=== PATIENT | female | born 1985 | race Asian ===

== ENCOUNTER 2021-08-21 06:41 | Inpatient (IN) | payer MEDICAID ==
[~2021-08-21] VITALS: Ht 157.5 cm; Wt 71.2 kg
[2021-08-21 08:19] LABS: BASOPHILS # (AUTO) 0.1 X10'3 (0-0.2); BASOPHILS % (AUTO) 0.4 % (0-1); EOSINOPHILS % (AUTO) 0.3 % (0-6); HEMATOCRIT 40.6 % (35.0-45.0); HEMOGLOBIN 13.2 g/dl (12.0-16.0); LYMPHOCYTES # (AUTO) 1.6 X10'3 (1.1-4.8); MEAN CORPUSCULAR HEMOGLOBIN 27.1 PG (27.0-31.0); MEAN CORPUSCULAR HGB CONC 32.5 g/dL (33.0-36.5); MEAN CORPUSCULAR VOLUME 83.5 FL (78-98); MEAN PLATELET VOLUME 8.2 FL (7.4-10.4); MONOCYTES # (AUTO) 0.7 X10'3 (0-0.9); MONOCYTES % (AUTO) 5.6 % (2-12); NEUTROPHILS # (AUTO) 9.9 X10'3 (1.8-7.7); NEUTROPHILS % (AUTO) 80.7 % (42-75); PLATELET COUNT 308 X10'3 (140-440); RED BLOOD COUNT 4.86 X10'6 (4.20-5.60); RED CELL DISTRIBUTION WIDTH 14.7 % (11.5-14.5); WHITE BLOOD COUNT 12.3 X10'3 (4.5-11.0)
[2021-08-21 08:22] LABS: URINE HCG NEGATIVE (NEG)
[2021-08-21 08:25] LABS: URINE AMPHETAMINE SCREEN NEGATIVE (Neg); URINE BARBITUATE SCREEN NEGATIVE (Neg); URINE BENZODIAZEPINES SCREEN NEGATIVE (Neg); URINE CANNABINOID SCREEN NEGATIVE (Neg); URINE COCAINE SCREEN NEGATIVE (Neg); URINE METHADONE SCREEN NEGATIVE (Neg); URINE OPIATE SCREEN NEGATIVE (Neg); URINE PHENCYCLIDINE SCREEN NEGATIVE (Neg)
[2021-08-21 08:31] LABS: ALANINE AMINOTRANSFERASE 30 U/L (12-78); ALBUMIN 4.2 G/DL (3.4-5.0); ALKALINE PHOSPHATASE 80 IU/L (46-116); ANION GAP 10 (8-16); ASPARTATE AMINO TRANSFERASE 20 U/L (10-37); BILIRUBIN,TOTAL 0.5 MG/DL (0.1-1.0); BLOOD UREA NITROGEN 4 MG/DL (7-18); BUN/CREATININE RATIO 4.3 (6.6-38.0); CALCIUM 9.1 MG/DL (8.5-10.1); CHLORIDE 103 MMOL/L (99-107); CREATININE 0.92 MG/DL (0.40-0.90); ETHANOL < 0.010 GM/DL (0.0-0.010); GLUCOSE 103 MG/DL (70-104); POTASSIUM 3.2 MMOL/L (3.5-5.1); SODIUM 141 MMOL/L (135-145); TOTAL CARBON DIOXIDE 27.7 MMOL/L (24-32); TOTAL PROTEIN 8.4 G/DL (6.4-8.2); eGFR 69 ML/MIN
[2021-08-21] MEDS ORDERED: potassium Cl 20 mEq SR tablet PO STA (09:31)
[2021-08-21] MEDS ORDERED: NO HOME MEDS (10:20)
--- NOTE | 2021-08-21 12:11 | NUR ---
Pt observerd sleeping
--- NOTE | 2021-08-21 14:32 | NUR ---
Pt seated up in bed eating lunch
--- NOTE | 2021-08-21 16:30 | NUR ---
Pt observed sleeping
--- NOTE | 2021-08-21 19:52 | NUR ---
The patient has been resting on her bed sleeping. She has declined dinner and then went right back to sleep. She did awaken for the evening assessment and was pleasant and polite. She did give vague replies. She stated that she has been feeling sad because she has been going through a breakup. She stated that she has been in [place] for several weeks visiting but plans to return to [place]. She reports last drug use was 3-4 weeks ago. She denies A/V hallucinations. 5150 hold was explained to her.
--- NOTE | 2021-08-21 20:45 | NUR ---
The patient and appears to be sleeping
--- NOTE | 2021-08-21 21:47 | NUR ---
The patient appears to be sleeping
--- NOTE | 2021-08-21 22:19 | NUR ---
The patient is awake and requesting Nyquil to sleep. MD made aware patient was requesting sleep medication. He reports he will come and talk with the patient
--- NOTE | 2021-08-21 22:31 | NUR ---
The patient has been accepted at [facility]. Will hold off on medicating for sleep until admitted upstairs.
--- NOTE | 2021-08-21 22:31 | NUR ---
Client to be admitted to [facility] for Depression/GD per Dr Ras Castillo.
[2021-08-21] MEDS ORDERED: magnesium hydroxide 30ml (MOM) UD suspension PO PRN (23:55)
[2021-08-21] MEDS ORDERED: mag hydrox/Alum hydrox/simeth 30ml oral suspension PO PRN (23:55)
[2021-08-21] MEDS ORDERED: loperamide 2mg capsule PO PRN (23:55)
[2021-08-21] MEDS ORDERED: acetaminophen 325mg tablet PO PRN ×2 (23:55)
[2021-08-22 00:27] VITALS: BP 139/91
[2021-08-22] MEDS ORDERED: hydrOXYzine 25 MG tablet PO PRN (00:40)
[2021-08-22] MEDS: NICOTINE POLACRILEX 2 MG LOZENGE BC PRN ×4 (00:47→17:51)
[2021-08-22] MEDS ORDERED: pneumococcal 23-VAL P-sac vacc 25 mcg/0.5ml vial IMVAC ONE (02:30)
--- NOTE | 2021-08-22 03:44 | NUR ---
NURSING ADMISSION NOTE Pt arrived on [facility] at 23:49 on 08/21/21. Pt offered a shower, but she declined. 2 RN skin check completed. 5150 advisement done, pt verbalized understanding. 5150 reads: Leonard reports inability to sleep or eat for the last week. Unable to define means of obtaining food or [facility]. Leonard presents as confused unable to establish viable safety plan. Pt states that she has been feeling depressed for awhile, denies SI saying, I dont want to and Im not suicidal, but I feel like if you keep being depressed for a long time it could lead to that, and I dont want that. It is hard to decipher if pt is being very vague or is a poor historian when answering questions about past medical history/ life events. She has a flat affect, and takes a few seconds to answer at times. When asked about past MH diagnosis, she replies, depression I think but I really cant remember it was years ago She reports having 3 prior inpatient hospitalizations, the last being about 3 years ago. Pt states she is just visiting family here in [place] but lives in [place]. She declines to sign any paperwork after staring at it for a few minutes saying, Can we please just do it tomorrow? PMH: hypertension, substance abuse, she reports getting opiates off the street like suboxone and pain pills illegally, and takes them periodically. She states she last had opiates 3 weeks ago. ER tox screen was negative. Chart reports hx of schizoaffective d/o. Pt denies SI/HI/AH/VH
[2021-08-22 07:54] LABS: HEMOGLOBIN A1C 5.1 % (4.5-6.2)
[2021-08-22 08:00] VITALS: BP 118/74
[2021-08-22] MEDS: nicotine 21mg patch - 24 hr TD SCH (08:08)
[2021-08-22 08:20] LABS: CHOL/HDL RATIO 2.1 (0.00-4.99); CHOLESTEROL 142 MG/DL (0-200); HDL CHOLESTEROL 67 MG/DL (35-60); LDL CHOLESTEROL 55 MG/DL (50-100); TRIGLYCERIDES 110 MG/DL (20-135)
--- NOTE | 2021-08-22 10:42 | NUR ---
Malnutrition consult: Per malnutrition risk screen with RN pt unsure of wt loss though also reports 2-13 lb wt loss with decreased appetite. Per program/music director pt reports inability to sleep or eat for the last week though RN also documents pt as confused versus vague versus a poor historian. No scaled wt hx in EMR. Patient's first scaled weight is 63.64 kg followed by 71.2 kg just two hours later. With either weight patient is not considered underweight. Pt on a regular diet and eating well, documented with 100% PO intake first meal. Pt with no documented decrease in muscle strength or edema. Pt currently lacks a minimum of two criteria for malnutrition. Will continue to follow. Addendum: 08/22/21 at [address] Amended: Links added.
--- NOTE | 2021-08-22 17:57 | NUR ---
Nursing Progress Note: Leonard Legal hold: 5150 Client on involuntary status for GD Report received from Hattie Guillen RN with use of SBAR Why are they here: Pt arrived on [facility] at 23:49 on 08/21/21. 5150 reads: Leonard reports inability to sleep or eat for the last week. Unable to define means of obtaining food or skilled nursing. Leonard presents as confused unable to establish viable safety plan. Pt states that she has been feeling depressed for a while, denies SI saying, I dont want to and Im not suicidal, but I feel like if you keep being depressed for a long time it could lead to that, and I dont want that. When asked about past MH diagnosis, she replies, depression I think but I really cant remember it was years ago She reports having 3 prior inpatient hospitalizations, the last being about 3 years ago. Pt states she is just visiting family here in [place] but lives in [place]. Assessment What has happened this shift: Patient received sleeping in her room at change of shift. She slept most of the morning and declined to participate for breakfast in the group room. Patient awoke around snack time at 1100 and was noted walking quietly around the unit. She was receptive to 1:1 assessment. Patient reported feelings of depression and extreme stress. She took a shower on this shift, dressed in clean clothing. She reports occasionally having thoughts of hurting herself but does not actually want to do anything like that. She denies SI and HI. Patient endorsed that she wants to get back on Celexa or another medication to make her feel better. She is noted to be polite, pleasant, and cooperative with care. She reports hearing voices of people talking to her when she is really tired. However, denies AH or VH on this shift. Patient endorsed that she is feeling well-rested now. She was observed napping on and off in her room throughout the shift. Patient awoke and was noted walking around the unit later in the shift, appearing bored. She joined for meals and snack time in the group room with peers. S/I, H/I: Denies A/VH: Denies. Does not appear to be responding to IS. Sleep: Pt slept 4 hours last night per NOC shift. Napped on and off throughout this shift. ADL's: Independent Group attendance: No Were meds taken: Scheduled Nicotine patch Any med S/E: None observed or reported Mental Status Exam Appearance: Younger appearing female with long black hair, wearing green unit scrubs. Eye contact: Good Behavior: Cooperative, polite, pleasant Speech: Clear, WNL Mood: Depressed and extremely stressed Affect: Blunted Thought process: Linear Thought Content: Meeting needs. Depressed and extremely stressed Cognition: A&O x4 Insight: Poor Judgment: Poor Interventions PRN's used: Nicotine lozenge Therapeutic interventions: Established rapport, maintained a safe and supportive environment, ensured contract for safety, provided clear and simple instructions, encouraged participation on the unit, 1:1 assessment, and maintained a safe and supportive environment. Restraints/seclusion/emergency medication: N/A Justification of Continued Inpatient Treatment: Pt. requires a safe and therapeutic environment, medication adjustment and monitoring, and interruption of current crisis.
[2021-08-22 20:46] VITALS: BP 122/82
[2021-08-22] MEDS: traZODone 50mg tablet PO SCH (21:17)
--- NOTE | 2021-08-23 04:06 | NUR ---
Nursing Progress Note: Leonard Legal hold: 5150 Client on involuntary status for GD Report received from Hattie Guillen RN with use of SBAR Why are they here: Patient was found sitting in community room talking to other patients. Patient was later seen playing card games with other patients and staff. Patient stats she enjoys talking to the other patients here. Patient participated in snack and requested to have something to help her sleep. REJI Le ordered trazodone 50mg. Patient took medication at 2115 and then went to bed.
[2021-08-23 08:26] VITALS: BP 114/69
[2021-08-23] MEDS: NICOTINE POLACRILEX 2 MG LOZENGE BC PRN ×4 (11:29→20:50)
[2021-08-23] MEDS: nicotine 21mg patch - 24 hr TD SCH (11:29)
--- NOTE | 2021-08-23 17:23 | NUR ---
Nursing Progress Note: Leonard Legal hold: 5150 Client on involuntary status for GD Report received from Hattie Guillen RN with use of SBAR Why are they here: Pt arrived on [facility] at 23:49 on 08/21/21. 5150 reads: Leonard reports inability to sleep or eat for the last week. Unable to define means of obtaining food or snf. Leonard presents as confused unable to establish viable safety plan. Pt states that she has been feeling depressed for a while, denies SI saying, I dont want to and Im not suicidal, but I feel like if you keep being depressed for a long time it could lead to that, and I dont want that. When asked about past MH diagnosis, she replies, depression I think but I really cant remember it was years ago She reports having 3 prior inpatient hospitalizations, the last being about 3 years ago. Pt states she is just visiting family here in [place] but lives in [place]. Assessment What has happened this shift: Patient observed sleeping in her room at shift change with no s/s of distress. She slept most of the morning and declined to participate for breakfast in the group room. Patient awoke and approached this specifications writer for a PRN Nicotine lozenge. She was receptive to 1:1 assessment. She continues to present as polite, pleasant, and cooperative with care. Patient endorsed to this specifications writer that she is feeling better and ready to leave. Reports plans to stay with family in [place], [place] until she is able to get back home to [place]. Patient denies SI, HI, AH or VH. Does not appear to be responding to internal stimuli. She was observed socializing in the group room with other peers throughout the day. She is polite and appropriate with staff and other peers on the unit. Patient joined for meals and snack time in the group room today. S/I, H/I: Denies A/VH: Denies. Does not appear to be responding to IS. Sleep: Pt slept 6.75 hours last night per NOC shift. Napped most of the morning. ADL's: Independent Group attendance: No group provided Were meds taken: Scheduled Nicotine patch Any med S/E: None observed or reported Mental Status Exam Appearance: Younger appearing female with long black hair, wearing green unit scrubs. Eye contact: Good Behavior: Cooperative, polite, pleasant Speech: Clear, WNL Mood: Euthymic, animated at times Affect: Blunted Thought process: Linear Thought Content: Meeting needs. Socializing with peers. Cognition: A&O x4 Insight: Poor Judgment: Poor Interventions PRN's used: Nicotine lozenge Therapeutic interventions: Maintained a safe and supportive environment, ensured contract for safety, provided clear and simple instructions, encouraged participation on the unit, 1:1 assessment, and maintained a safe and supportive environment. Restraints/seclusion/emergency medication: N/A Justification of Continued Inpatient Treatment: Pt. requires a safe and therapeutic environment, medication adjustment and monitoring, and interruption of current crisis.
[2021-08-23 19:01] VITALS: BP 110/78
[2021-08-23] MEDS: traZODone 50mg tablet PO SCH ×2 (21:12→22:04)
--- NOTE | 2021-08-24 03:19 | NUR ---
Nursing Progress Note: Legal hold: 5150 Client on involuntary status for GD Report received from Anthoyn RN with use of SBAR Why are they here: Pt arrived on [facility] at 23:49 on 08/21/21. 5150 reads: Leonard reports inability to sleep or eat for the last week. Unable to define means of obtaining food or [facility]. Leonard presents as confused unable to establish viable safety plan. Pt states that she has been feeling depressed for a while, denies SI saying, I dont want to and Im not suicidal, but I feel like if you keep being depressed for a long time it could lead to that, and I dont want that. When asked about past MH diagnosis, she replies, depression I think but I really cant remember it was years ago She reports having 3 prior inpatient hospitalizations, the last being about 3 years ago. Pt states she is just visiting family here in [place] but lives in [place]. Assessment What has happened this shift: Patient social and watching TV with peers in the community room at the beginning of shift. Pleasant and cooperative with care; compliant with medication. Repeat Trazodone provided this shift. PRN Nicotine lozenges provided and patch removed. Patient denies SI, HI, A/VH; no apparent delusions expressed. She participated in HS snack and continued to watch TV with peers prior to bed; observed sleeping and does not appear to be having difficulty. Justification of Continued Inpatient Treatment: Pt. requires a safe and therapeutic environment, medication adjustment and monitoring, and interruption of current crisis.
[2021-08-24 07:58] VITALS: BP 114/69
[2021-08-24] MEDS: nicotine 21mg patch - 24 hr TD SCH (08:44)
[2021-08-24] MEDS: NICOTINE POLACRILEX 2 MG LOZENGE BC PRN ×3 (08:45→14:55)
[2021-08-24] MEDS ORDERED: TRAZ-256 PO (14:46)
--- NOTE | 2021-08-24 15:58 | NUR ---
Patient discharged and escorted from the unit by staff at approximately 1540. She is A&O x4, calm and cooperative with no s/s of distress. Discharge instructions reviewed with opportunity for all questions to be answered. Patients home medication retrieved from the Pharmacy and returned to her. New RX information discussed with patient including pharmacy to [facility] RX from. All personal belongings inventoried and returned to patient. She was ambulatory from the unit to the front of the hospital with a steady gait. Patient left hospital by POV.
== END 2021-08-24 15:40 | disposition home or self-care (01) | DRG 776 ==
LOC: ER 06:42 → ADULT MH 22:30
PROVIDERS: ADMIT Psychiatry & Neurology Psychiatry; ATTEND Psychiatry & Neurology Psychiatry
DX: F19.951 Other psychoactive substance use, unspecified with psychoactive substance-induced psychotic disorder with hallucinations (principal); F25.9 Schizoaffective disorder, unspecified; R45.851 Suicidal ideations; F32.9 Major depressive disorder, single episode, unspecified; E66.3 Overweight; Z20.822 Contact with and (suspected) exposure to COVID-19; F17.210 Nicotine dependence, cigarettes, uncomplicated; Z82.49 Family history of ischemic heart disease and other diseases of the circulatory system; Z83.3 Family history of diabetes mellitus; Z68.28 Body mass index [BMI] 28.0-28.9, adult; Z28.21 Immunization not carried out because of patient refusal; Z71.6 Tobacco abuse counseling; Z56.0 Unemployment, unspecified
CPT/HCPCS: 36415; 80053; 80061; 80305; 80320; 81025; 83036; 85025; 87081; 87635; 93005; 99285; C9803; Q0177